=== PATIENT | female | born 1995 | race Caucasian/White ===

== ENCOUNTER 2018-11-27 15:00 | Outpatient (RCR) | payer BC, SELFPAY ==
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
--- NOTE | 2018-11-27 15:40 | HP.PTDCSUM ---
HP - PT D/C Summary It has been my pleasure to treat JUVENAL URIBE under orders from DONALD DUFFY, for the diagnosis of LUMBAGO WITH SCIATICA for a total of 10 visit(s). Discharge Date: Please see the following information for a summary of their discharge status. - Subjective Subjective: PATIENT REPORTS SHE IS FEELING PRETTY GOOD TODAY. PATIENT REPORTS THAT OVER-ALL SHE FEELS ABOUT THE SAME NOW SHE DID BEFORE SHE STARTED ANY PT. PATIENT REPORTS SHE IS SUPPOSED TO CALL HER DOCTOR TO MAKE A FOLLOW UP APPOINTMENT. PATIENT REPORTS TEMPORARY RELIEF WITH US WAS THE MOST RELIEF SHE HAS HAD WITH PT. PATIENT REPORTS SHE WAS ABLE TO STACK PALLETS TODAY AND DID OK BUT SITTING IN CLINIC TODAY INCREASES PAIN. - Pain RIGHT LOW BACK Pain Intensity (Out of 10): 4 RIGHT THIGH Pain Intensity (Out of 10): 0 - Objective Objective/Function: OVER-ALL PATIENT DOES NOT APPEAR TO BE IMPROVING WITH PHYSICAL THERAPY BUT SOME OF HER TESTING PROVOKES DIFFERENT C/O PAIN OR LACK THEREOF TODAY VS INITIAL EVAL. NO SIGNIFICANT CHANGE IN ROM OR STRENGTH IS SEEN TODAY VS INITIAL EVAL. RECOMMEND PHYSIAN RE-ASSESSMENT. Active Correction of posture: STILL INCREASES C/O LBP. Other Observations: INDEP GAIT INTO PT WITHOUT ANY ASSISTIVE DEVICES AND NO GROSS DEVIATION NOTED. INDEP TRANSFER SIT TO STAND WITHOUT UE ASSIST. Motor deficit: ROCKY LE'S 5/5 WITH MMT'IING BUT TESTING OF RIGHT HIP FLEX, ABD AND EXTERNAL ROTATION INCREASES LBP AND TESTING OF ROCKY HIP EXTENSION INCREASES LBP. Sensory deficit: NO. ROM deficit: TIGHT ROCKY HAMSTRINGS RIGHT > LEFT. Reflexes: ROCKY QUADS NORMAL. Dural Signs: NEGATIVE ROCKY LE'S. Lumbar mvmt loss: flex - NIL - PATIENT C/O INCREASED LBP IN FULL FLEXION. ext - MOD - DECEASES LOW BACK PAIN - NO EFFECT ON RIGHT LE. R SG - NIL - NE. L SG - NIL - INCREASED CENTRAL LBP. Core strength: POOR. Palpation: TENDER WITH PALPATION OF THE LOWER LUMBAR SPINE AND SACRUM WITH TENDERNESS STOPPING AT TAILBONE. INCRASED ROCKY PARASPINALS INTO LUMBAR AND THORACIC REGIONS L >R. PATIENT REPORTS TIGHTNESS OF BACK MUSCLES WITH PALPATION LEFT > RIGHT BUT NOT TENDER. OTHER: ROCKY DANICA TESTING STILL PROVOKES C/O INCREASED LBP - Goals Goal 1:: DECREASE C/O BACK AND RIGHT LE SX'S Goal Progress: Not Progressing Goal 2:: IMPROVE PERSONAL CARE, LIFTING, SITTING, STANDING SOCIAL LIFE, TRAVEL AND WORK FUNCTION Goal Progress: Not Progressing Goal 3:: INSTRUCT IN PROPHYLAXIS Goal Progress: Not Progressing - Plan Plan: D/C DUE TO LACK OF IMPROVEMENT. PATEINT IS AGREEABLE. PATIENT TO CALL PHYSICIAN FOR RE-ASSESSMENT. - D/C Information If there are questions or concerns regarding this patient's physical therapy, please feel free to call me at [phone]. Thank you for the referral of this patient. Sincerely, Vera Pace, PT, Cert MDT
== END 2018-11-27 19:00 | disposition home or self-care (01) ==
LOC: PT 15:00
PROVIDERS: Family Provider Pediatrics; PCP Pediatrics
DX: M54.40 Lumbago with sciatica, unspecified side (principal)
CPT/HCPCS: 97014; 97035; 97110; 97113; 97162; 97530; G0283

== ENCOUNTER 2021-12-05 10:51 | Outpatient (CLI) | payer MEDICAID, SELFPAY ==
--- NOTE | 2021-12-05 10:54 | US_ITS ---
STUDY: FIRST TRIMESTER OBSTETRICAL ULTRASOUND REASON FOR EXAM: Female, 26 years old viability and dating LMP: Unknown. TECHNIQUE: Transvaginal TECHNICAL QUALITY: Adequate. PRIOR ULTRASOUND: None. FINDINGS: There is visualization of a single gestational sac in a normal intrauterine position. The mean sac diameter (MSD) measures 2.21 cm, indicating an estimated gestational age (EGA) of 7 weeks, 1 days. The gestational sac shape is within normal limits. There is a visualized yolk sac. The yolk sac measures 4.5 mm. The placenta is non-visualized. There is visualization of a live embryo. The crown-rump length (CRL) measures 7.1 mm, indicating an estimated gestational age (EGA) of 6 weeks, 5 days. There is demonstrated cardiac activity with a heart rate of 126 bpm. The estimated gestation age (EGA) by US is 6 weeks, 5 days. The estimated date of delivery (ERNIE) by US is 07/25/2022. The uterus measures 9.6 cm x 6.4 cm x 4.4 cm. There is no demonstrated uterine fibroid. The cervix is closed. The right ovary measures 4 cm x 1.8 cm x 1.6 cm. There is no right ovarian cyst. There is no visualized right adnexal mass or complex lesion. The left ovary measures 3 cm x 2.2 cm x 1.6 cm. There is no left ovarian cyst. There is no visualized left adnexal mass or complex lesion. There is no fluid in the cul de sac. US/Transvaginal w/Preg US IMPRESSION: Single live intrauterine gestation with a mean gestational age of 6 weeks and 5 days. Electronically Signed: Bradley Galvan MD at 13:28 EST ,
== END 2021-12-05 23:59 | disposition short-term general hospital (02) ==
LOC: OPUS 10:53
PROVIDERS: PCP Pediatrics; Referring Provider Obstetrics & Gynecology; Visit Provider Obstetrics & Gynecology
DX: N91.2 Amenorrhea, unspecified (principal)
CPT/HCPCS: 76817

== ENCOUNTER 2021-12-18 13:22 | Outpatient (CLI) | payer MEDICAID, SELFPAY ==
[2021-12-18 14:23] LABS: Amphetamine Urine VISTA NEGATIVE (<1000 ng/mL); Barbiturate Urine VISTA NEGATIVE (< 200 ng/mL); Benzodiazepine Urine VISTA NEGATIVE (< 200 ng/mL); Cocaine Urine VISTA NEGATIVE (< 300 ng/mL); Ecstacy Urine VISTA NEGATIVE (< 500 ng/mL); Methadone Urine VISTA NEGATIVE (< 300 ng/mL); PCP Urine VISTA NEGATIVE (< 25 ng/mL); THC Urine VISTA POSITIVE (< 50 ng/mL); Vista UDS pH Range 6
[2021-12-21 05:08] LABS: Chlamydia By Nucleic Acid AMP Negative (Negative)
[2021-12-21 08:13] LABS: Gonococcus By Nucleic Acid AMP Negative (Negative)
[2021-12-24 13:42] LABS: HPV Reflexed? NOT INDICATED
== END 2021-12-18 23:59 | disposition home or self-care (01) ==
LOC: LAB 13:25
PROVIDERS: PCP Pediatrics; Referring Provider Obstetrics & Gynecology; Visit Provider Obstetrics & Gynecology
DX: Z34.80 Encounter for supervision of other normal pregnancy, unspecified trimester (principal)
CPT/HCPCS: 80307; 87086; 87088; 87491; 87591; 88175; G0145

== ENCOUNTER 2022-01-02 12:30 | Outpatient (CLI) | payer MEDICAID, SELFPAY ==
[2022-01-02 13:11] LABS: Absolute Lymphocyte Count 2.62 X10^3/uL (0.83-4.51); Absolute Neutrophil Count 7.3 X10^3/uL (2.0-7.7); Basophil# 0.03 X10^3/uL; Basophil% 0.3 % (0-1); Eosinophil# 0.02 X10^3/uL; Eosinophils% 0.2 % (0-5); Hematocrit 39.1 % (37-47); Hemoglobin 13.6 g/dL (12.0-15.0); Lymphocyte # 2.62 X10^3/ul (0.83-4.51); Lymphocyte % 24.5 % (19-41); Mean Corp Hgb Conc 34.8 g/dL (32-36); Mean Corpuscular Hgb 30.8 pg (27.0-32.0); Mean Corpuscular Volume 88.7 fL (81-99); Mean Platelet Vol. 9.9 fl (6.2-12.0); Monocyte# 0.72 X10^3/uL; Monocyte% 6.7 % (0-10); NRBC Flagged by Analyzer 0 % (0-5); Neutrophil # 7.28 X10^3/uL (2.7-7.7); Platelet Count 271 K/mm3 (150-450); RBC Distribution Width CV 11.8 % (11.6-14.6); RBC Distribution Width SD 38.3 fl (35.1-43.9); Red Blood Count 4.41 M/mm3 (4.2-5.4); White Blood Count 10.7 K/mm3 (4.4-11.0)
[2022-01-02 13:39] LABS: ALB/GLOB Ratio 1.1 RATIO (0.9-2.4); AST(SGOT) 11 U/L (15-37); Alanine Aminotransfer ALT/SGPT 16 U/L (13-56); Albumin, Serum 4.1 g/dL (3.2-5.0); Alkaline Phosphatase 49 U/L (45-117); Anion Gap 6 (5-15); BUN 5 mg/dL (7-18); BUN/Creat Ratio 8.1 RATIO (10-20); Chloride 102 mmol/L (98-107); Creatinine, Serum 0.62 mg/dL (0.55-1.02); EST Glomerular Filtration Rate 125 mL/min (>60); Est Glom Filt Rate - Afr Amer 151 mL/min (>60); Globulin 3.6 g/dL (2.2-4.2); Glucose 92 mg/dL (74-106); Potassium 3.1 mmol/L (3.5-5.1); Protein, Total 7.7 g/dL (6.4-8.2); Sodium Level 136 mmol/L (136-145)
[2022-01-02 13:47] LABS: NATERA MAILED SPECIMEN
[2022-01-02 14:37] LABS: HIV - WCH Non-Reactive (Nonreactive); Hepatitis B Surface Antigen Non-Reactive (Nonreactive); Hepatitis C Antibody Non-Reactive (Nonreactive); Rubella IgG Reactive (Nonreactive); Syphilis Antibodies Non-reactive
[2022-01-03 18:41] LABS: V-Zoster IgG (Immunity) 1038 index (Immune >165)
== END 2022-01-02 23:59 | disposition home or self-care (01) ==
LOC: LAB 12:33
PROVIDERS: PCP Pediatrics; Visit Provider Obstetrics & Gynecology
DX: Z34.80 Encounter for supervision of other normal pregnancy, unspecified trimester (principal); Z78.9 Other specified health status
CPT/HCPCS: 36415; 80053; 85025; 86703; 86762; 86780; 86787; 86803; 86850; 86900; 86901; 87086; 87088; 87340

== ENCOUNTER 2022-01-18 11:42 | Outpatient (CLI) | payer MEDICAID, SELFPAY ==
[2022-01-18 12:46] LABS: NATERA MAILED SPECIMEN
== END 2022-01-18 23:59 | disposition home or self-care (01) ==
LOC: LABSPEC 11:45
PROVIDERS: PCP Family Medicine Sports Medicine; Referring Provider Obstetrics & Gynecology; Visit Provider Obstetrics & Gynecology
DX: Z34.81 Encounter for supervision of other normal pregnancy, first trimester (principal)
CPT/HCPCS: 36415

== ENCOUNTER → 2022-05-01 | Outpatient (CLI) | payer MEDICAID, SELFPAY ==
[2022-05-01 14:08] LABS: Absolute Lymphocyte Count 1.68 X10^3/uL (0.83-4.51); Absolute Neutrophil Count 9.1 X10^3/uL (2.0-7.7); Basophil# 0.02 X10^3/uL; Basophil% 0.2 % (0-1); Eosinophil# 0.07 X10^3/uL; Eosinophils% 0.6 % (0-5); Hematocrit 35.3 % (37-47); Hemoglobin 11.9 g/dL (12.0-15.0); Lymphocyte # 1.68 X10^3/ul (0.83-4.51); Lymphocyte % 14.4 % (19-41); Mean Corp Hgb Conc 33.7 g/dL (32-36); Mean Corpuscular Hgb 31.6 pg (27.0-32.0); Mean Corpuscular Volume 93.9 fL (81-99); Mean Platelet Vol. 9.3 fl (6.2-12.0); Monocyte# 0.66 X10^3/uL; Monocyte% 5.7 % (0-10); NRBC Flagged by Analyzer 0 % (0-5); Neutrophil # 9.14 X10^3/uL (2.7-7.7); Neutrophil % 78.5 % (47-70); Platelet Count 249 K/mm3 (150-450); RBC Distribution Width CV 12.3 % (11.6-14.6); RBC Distribution Width SD 42.1 fl (35.1-43.9); Red Blood Count 3.76 M/mm3 (4.2-5.4); White Blood Count 11.6 K/mm3 (4.4-11.0)
[2022-05-01 14:20] LABS: Glucose Challenge Gest 1H 50g 121 mg/dL (70-140)
== END | disposition home or self-care (01) ==
LOC: PAVLAB 13:39
PROVIDERS: PCP Family Medicine Sports Medicine; Referring Provider Obstetrics & Gynecology; Visit Provider Obstetrics & Gynecology
DX: Z34.80 Encounter for supervision of other normal pregnancy, unspecified trimester (principal)
CPT/HCPCS: 36415; 82950; 85025

== ENCOUNTER → 2022-06-28 | Outpatient (CLI) | payer MEDICAID, SELFPAY | END | disposition home or self-care (01) | LOC: LABSPEC 13:55 | PROVIDERS: PCP Family Medicine Sports Medicine; Referring Provider Obstetrics & Gynecology; Visit Provider Obstetrics & Gynecology | DX: Z34.90 Encounter for supervision of normal pregnancy, unspecified, unspecified trimester (principal) | CPT/HCPCS: 87081 ==

== ENCOUNTER 2022-07-04 17:35 | Inpatient (IN) | payer MEDICAID, SELFPAY ==
[2022-07-04] VITALS (59 sets, daily range): BP systolic 93–147; BP diastolic 51–90; PULSE 69–193; TEMP 36.1–36.8; O2SAT 93–100; BMI 31.2
--- NOTE | 2022-07-04 14:31 | US_ITS ---
STUDY: OBSTETRICAL ULTRASOUND - BIOPHYSICAL PROFILE REASON FOR EXAM: Female, 26 years old. Non-reassuring FHR- well being PRIOR ULTRASOUND: 2.12.25. TECHNIQUE: Transabdominal TECHNICAL QUALITY: Adequate. FINDINGS: There is a single intrauterine fetus. The fetus is in a cephalic presentation. There is demonstrated cardiac activity with a heart rate of 143 bpm. There is a normal amniotic fluid volume. The largest amniotic fluid pocket measures 4.9 cm. The amniotic fluid index (ERNESTO) is 11.8 cm. The placenta is anterior in location and is not low lying. There are Grade 3 placental changes. Age by LMP: 37 weeks, 0 days. ERNIE by LMP: 9.. BIOPHYSICAL PROFILE: Breathing Movements (FBM): 0 Gross Body Movements (GBM): 0 Tone (FT): 2 Amniotic Fluid Volume (AFV): 2 TOTAL SCORE: 4 / 8 US/Biophysical Prof W/O Non Stres IMPRESSION: biophysical profile of 4/8. There is a single live intrauterine with a heart rate of 143 bpm. Electronically Signed: Riki Gould MD at 17:21 EDT ,
[2022-07-04] MEDS: Lactated Ringers 1,000 ML 50 ML IV (18:10)
[2022-07-04 18:25] LABS: Absolute Lymphocyte Count 2.04 X10^3/uL (0.83-4.51); Absolute Neutrophil Count 10.7 X10^3/uL (2.0-7.7); Basophil# 0.02 X10^3/uL; Basophil% 0.1 % (0-1); Eosinophil# 0.04 X10^3/uL; Eosinophils% 0.3 % (0-5); Hematocrit 37.3 % (37-47); Hemoglobin 12.6 g/dL (12.0-15.0); Lymphocyte # 2.04 X10^3/ul (0.83-4.51); Mean Corp Hgb Conc 33.8 g/dL (32-36); Mean Corpuscular Volume 91.9 fL (81-99); Mean Platelet Vol. 9.6 fl (6.2-12.0); Monocyte# 0.73 X10^3/uL; Monocyte% 5.4 % (0-10); NRBC Flagged by Analyzer 0 % (0-5); Neutrophil # 10.68 X10^3/uL (2.7-7.7); Neutrophil % 78.7 % (47-70); Platelet Count 264 K/mm3 (150-450); RBC Distribution Width SD 43.2 fl (35.1-43.9); Red Blood Count 4.06 M/mm3 (4.2-5.4); White Blood Count 13.6 K/mm3 (4.4-11.0)
[2022-07-04] MEDS: LACTATED RINGERS 500 ML 999 ML IV ×2 (19:06→20:38)
[2022-07-04] MEDS: fentaNYL-bupivacaine (epidural) 100 ML BAG EPIDURAL (19:56)
[2022-07-04 19:59] LABS: Amphetamine Urine VISTA NEGATIVE (<1000 ng/mL); Barbiturate Urine VISTA NEGATIVE (< 200 ng/mL); Benzodiazepine Urine VISTA NEGATIVE (< 200 ng/mL); Cocaine Urine VISTA NEGATIVE (< 300 ng/mL); Ecstacy Urine VISTA NEGATIVE (< 500 ng/mL); Methadone Urine VISTA NEGATIVE (< 300 ng/mL); PCP Urine VISTA NEGATIVE (< 25 ng/mL); THC Urine VISTA POSITIVE (< 50 ng/mL); Vista UDS pH Range 8
[2022-07-04] MEDS: Ondansetron 4 MG/2 ML Vial IV (20:44)
[2022-07-04] MEDS: Oxytocin 30 units/NS 500 ml 30 UNITS/500 ML IV.SOLN IV (21:15)
--- NOTE | 2022-07-04 21:41 | HP.PCM.OB_ITS ---
HPI - General General Date of Admission: 07/04/22 HPI Narrative JUVENAL URIBE, is a 26 F who presents with heart rate variable and 6/10 bpp for IOL. Maternal Data Information ERNIE Calculator Estimated Delivery Date Method Current WG Current Estimate 07/25/22 Ultrasound #1 37w 0d Other Estimates 07/26/22 Ultrasound #2 36w 6d PFSH PFSH Medical History Anxiety Depression History of asthma Marijuana use Home Medications vitamin no.102-iron 90 mg-folate 1 mg-dha 200 mg capsule 1 cap PO DAILY 01/18/22 [History Last Taken Unknown] Allergy/AdvReac Type Severity Reaction Status Date / Time No Known Allergies Allergy Verified 07/04/22 13:56 Surgical History History of tonsillectomy History of wisdom tooth extraction Social History adopted: No household members: children and other details: Grandpa number of children: 1 current occupational status: unemployed pets and animals: Yes pets and animals: cat(s) and dog(s) Smoking Status: Former smoker alcohol intake: never substance use type: does not use caffeine: Yes (reduce with ) Type: carbonated beverages do you feel safe at home: Yes additional social history: JERAMY Solomon History 2 Elective abortions Hx Para 1 Spontaneous abortions Hx # Term Pregnancies Ectopic pregnancies Hx # Pregnancies Multiple births # of living children 1 Past Pregnancies Del. Date Name GA/Weeks Outcome Route Bth Weight Infant Gen Labor Lgth Anesthesia Del Locatn Provider FOB 10/19/13 Ender 38 live - full term vacuum 7# 11oz Male 6 hr ep idural [facility] Seals not involved Delivery Date: 10/19/13 Last Updated by: Hailey Cunha RFID TECHNICIAN, RFID TECHNICIAN-C SROM. Visit Details Expected Delivery Route/Plan Labor Preferences- CB/BF classes: [] labor support person: [] labor intervention preferences: [] pain management options preferred: [] cut cord/dad catch: [] : [] PP control planned: [] discussed possible routes of delivery and associated risks: [] special requests: [] Plans Covid status: [] Flu vaccine: [] Tdap vaccine: [] Rhogam: [] LARC form signed: [] Problem list reviewed and updated with the most current plan of care details and appropriate orders placed. Relevant counseling for the gestational age provided. Continue routine care and follow up unless otherwise noted in visit n otes/problem list details OB Flowsheet Initial Weight: Not Recorded Date -?-?-?-?-?-?-?-?-?-?--?-?- EGA Weight BP Urine Prot -?-?-?-?-?-?-?-?-?-?-?-?- Glucose FHR FuHt Pres Dilation -?-?-?-?-?-?-?-?-?-?-?-?- Effaced St Visit Note 12/18/21 -?-?-?-?-?-?-?-?-?-?-?-?- 8w 5d 138 lb 6 oz 110/70 -?-?-?-?-?-?-?-?-?-?-?-?- 163 -?-?-?-?-?-?-?-?-?-?-?-?- JV- CRL consiste nt with earlier ultrasound. pt has nausea - reglan and pepcid ordered 01/02/22 -?-?-?-?-?-?-?-?-?-?-?-?- 10w 6d 130 lb 6 oz 118/86 Nega tive -?-?-?-?-?-?-?-?-?-?-?-?- Negative 160 -?-?-?-?-?-?-?-?-?-?-?-?- JV- nausea somew hat improved. needs to leave urine sample as was treated in [facility] for n/v and was told has uti. She has been vomiting the abx. try phenergan. 01/18/22 -?-?-?-?-?-?-?-?-?-?-?-?- 13w 1d 134 lb 106/70 Negative -?-?-?-?-?-?-?-?-?-?-?-?- Negative 150 -?-?-?-?-?-?-?-?-?-?-?-?- SM- no vb lof cr amping 02/20/22 -?-?-?-?-?-?-?-?-?-?-?-?- 17w 6d 138 lb 4 oz 110/62 Trac e -?-?-?-?-?-?-?-?-?-?-?-?- Negative 148 -?-?-?-?-?-?-?-?-?-?-?-?- MH-No Vb, LOF. F eels some flutters. Tearful, lost grandpa last week. She lived with him. Wants to restart med for depression. Rx zoloft. Enc counseling. Now living w her dad and going ok. BF is supportive. Nausea returned. Rx zofran. States Neha not having genetic testing done due to his insurance won't cover. Will check into this. 03/20/22 -?-?-?-?-?-?-?-?-?-?-?-?- 21w 6d 142 lb 2 oz 110/70 Nega tive -?-?-?-?-?-?-?-?-?-?-?-?- Negative 154 -?-?-?-?-?-?-?-?-?-?-?-?- JV- no lof, vagi nal bleeding, or dec fm. small echogic focus. pt doing overall well emotionally this week. 04/17/22 -?-?-?-?-?-?-?-?-?-?-?-?- 25w 6d 150 lb 2 oz 128/70 Nega tive -?-?-?-?-?-?-?-?-?-?-?-?- Negative 150 -?-?--?-?-?-?-?-?-?-?-?-?- JV- gct ordered. no complaints. 05/01/22 -?-?-?-?-?-?-?-?-?-?-?-?- 27w 6d 153 lb 4 oz Negative -?-?-?-?-?-?-?-?-?-?-?-?- Negative 145 28 -?-?-?-?-?-?-?-?-?-?-?-?- JV- normal gct a nd cbc, no complaints other than small 3 cm rash on abdomen that itches. she had a spot on her arm that she applied bleach to and that is irritated and red. Recommend hydrocortisone cream to abdomen and keep wound on arm coverd and clean. 05/23/22 -?-?-?-?-?-?-?-?-?-?-?-?- 31w 0d 160 lb 4 oz 100/60 Nega tive -?-?-?-?-?-?-?-?-?-?-?-?- Negative 150 31 -?-?-?-?-?-?-?-?-?-?-?-?- JV- no lof, vagi nal bleeding, or dec fm. we talked a lot about post depression. 06/06/22 -?-?-?-?-?-?-?-?-?-?-?-?- 33w 0d 158 lb 116/74 Negative -?-?-?-?-?-?-?-?-?-?-?-?- Negative 156 34 -?-?-?-?-?-?-?-?-?-?-?-?- JV- no lof, vagi nal bleeding, or dec fm. pt wondering if could get a sneak peak of baby's face before delviery. we talked about a quick scan in the ultrasound room at 36 weeks to check for vtx presentation. 06/21/22 -?-?-?-?-?-?-?-?-?-?-?-?- 35w 1d 160 lb 4 oz 118/62 Nega tive -?-?-?-?-?-?-?-?-?-?-?-?- Negative 150 36 Cephalic -?-?-?-?-?-?-?-?-?-?-?-?- SM- no vb lof go od fm no regular ctx 06/28/22 -?-?-?-?-?-?-?-?-?-?-?-?- 36w 1d 162 lb 102/58 Negative -?-?-?-?-?-?-?-?-?-?-?-?- Negative 140 37 Cephalic 1 -?-?-?-?-?-?-?-?-?-?-?-?- SM- no vb lof go od fm no regulr ctx gbs today 07/04/22 -?-?-?-?-?--?-?-?-?-?-?-?- 37w 0d 165 lb 8 oz 112/77 Nega tive -?-?-?-?-?-?-?-?-?-?-?-?- Negative 185 37 Cephalic 3 -?-?-?-?-?-?-?-?-?-?-?-?- 70 -2 JV- heart rate in 180's for over 2 minutes then dropped to 60's, back up to 170's. pt was put on NSt and showed hear trate 150 with drop to 90, then back up to 150 and back down to 101. sending to L&D stat via wheelchair. 07/04/22 -?-?-?-?-?-?-?-?-?-?-?-?- 37w 0d 165 lb 8 oz 128/74 121/78 134/85 135/74 137/81 147/90 118/64 119/59 117/57 109/56 114/58 145/81 -?-?-?-?-?-?-?-?-?-?-?-?- -?-?-?-?-?-?-?-?-?-?-?-?- NST FHR Rate Baby A Baseline: 130 Variability:: Moderate Accelerations:: 15 x 15 Decelerations:: None NST Reactive:: Yes FHR Category:: Category I Uterine Activity:: irregular ROS Constitutional Constitutional: Reports systems reviewed and no addt'l complaints, except as documented Eyes Eyes: Denies change in vision ENT HEENT: Reports systems reviewed and no addt'l complaints, except as documented; Denies headache(s) Cardiovascular Cardiovascular: Reports systems reviewed and no addt'l complaints, except as documented; Denies chest pain or dyspnea Respiratory/Chest Respiratory/Chest: Reports systems reviewed and no addt'l complaints, except as documented Gastrointestinal Gastrointestinal: Reports systems reviewed and no addt'l complaints, except as documented; Denies abdominal pain Genitourinary Genitourinary: Reports systems reviewed and no addt'l complaints, except as documented, contractions Details: present (irregular) and movement Details: present; Denies dysuria or genital lesions Musculoskeletal Musculoskeletal: Reports systems reviewed and no addt'l complaints, except as documented Neurologic Neurologic: Reports systems reviewed and no addt'l complaints, except as documented Endocrine Endocrinology: Reports systems reviewed and no addt'l complaints, except as documented Vital Signs Vital Signs Vital Signs: 07/04/22 14:28 07/04/22 14:28 07/04/22 14:31 Temperature Temperature Source Pulse Rate 69 75 Blood Pressure 128/74 H BP Systolic 128 BP Diastolic 74 Pulse Ox 07/04/22 14:31 07/04/22 14:36 07/04/22 14:36 Temperature Temperature Source Pulse Rate 79 Blood Pressure BP Systolic BP Diastolic Pulse Ox 98 98 07/04/22 14:33 07/04/22 14:33 07/04/22 14:33 Temperature Temperature Source Temporal Pulse Rate 81 Blood Pressure BP Systolic BP Diastolic Pulse Ox 98 07/04/22 14:33 07/04/22 14:41 07/04/22 14:41 Temperature 96.9 F L Temperature Source Pulse Rate 80 Blood Pressure BP Systolic BP Diastolic Pulse Ox 98 07/04/22 14:46 07/04/22 14:46 07/04/22 14:51 Temperature Temperature Source Pulse Rate 85 74 Blood Pressure BP Systolic BP Diastolic Pulse Ox 97 07/04/22 14:51 07/04/22 14:56 07/04/22 14:56 Temperature Temperature Source Pulse Rate 84 Blood Pressure BP Systolic BP Diastolic Pulse Ox 98 98 07/04/22 15:01 07/04/22 15:01 07/04/22 15:06 Temperature Temperature Source Pulse Rate 73 73 Blood Pressure BP Systolic BP Diastolic Pulse Ox 98 07/04/22 15:06 07/04/22 15:11 07/04/22 15:11 Temperature Temperature Source Pulse Rate 84 Blood Pressure BP Systolic BP Diastolic Pulse Ox 98 97 07/04/22 15:16 07/04/22 15:16 07/04/22 15:21 Temperature Temperature Source Pulse Rate 75 73 Blood Pressure BP Systolic BP Diastolic Pulse Ox 98 07/04/22 15:21 07/04/22 15:26 07/04/22 15:26 Temperature Temperature Source Pulse Rate 72 Blood Pressure BP Systolic BP Diastolic Pulse Ox 98 97 07/04/22 15:31 07/04/22 15:31 07/04/22 15:35 Temperature Temperature Source Pulse Rate 74 72 Blood Pressure BP Systolic BP Diastolic Pulse Ox 97 07/04/22 15:35 07/04/22 15:41 07/04/22 15:41 Temperature Temperature Source Pulse Rate 82 Blood Pressure BP Systolic BP Diastolic Pulse Ox 98 97 07/04/22 15:45 07/04/22 15:45 07/04/22 16:04 Temperature Temperature Source Pulse Rate 81 69 Blood Pressure BP Systolic BP Diastolic Pulse Ox 97 07/04/22 16:04 07/04/22 16:08 07/04/22 16:08 Temperature Temperature Source Pulse Rate 76 Blood Pressure BP Systolic BP Diastolic Pulse Ox 97 97 07/04/22 16:13 07/04/22 16:13 07/04/22 17:45 Temperature Temperature Source Pulse Rate 76 71 Blood Pressure BP Systolic BP Diastolic Pulse Ox 97 07/04/22 17:45 07/04/22 17:50 07/04/22 17:50 Temperature Temperature Source Pulse Rate 92 Blood Pressure BP Systolic BP Diastolic Pulse Ox 98 99 07/04/22 17:55 07/04/22 17:55 07/04/22 18:00 Temperature Temperature Source Pulse Rate 76 86 Blood Pressure BP Systolic BP Diastolic Pulse Ox 98 07/04/22 18:00 07/04/22 18:05 07/04/22 18:05 Temperature Temperature Source Pulse Rate 75 Blood Pressure BP Systolic BP Diastolic Pulse Ox 98 99 07/04/22 18:10 07/04/22 18:10 07/04/22 18:15 Temperature Temperature Source Pulse Rate 88 75 Blood Pressure BP Systolic BP Diastolic Pulse Ox 98 07/04/22 18:15 07/04/22 18:20 07/04/22 18:20 Temperature Temperature Source Pulse Rate 80 Blood Pressure 121/78 H BP Systolic 121 BP Diastolic 78 Pulse Ox 99 07/04/22 18:20 07/04/22 18:22 07/04/22 18:22 Temperature Temperature Source Temporal Pulse Rate Blood Pressure BP Systolic BP Diastolic Pulse Ox 99 98 07/04/22 18:22 07/04/22 19:19 07/04/22 19:21 Temperature 97.7 F L Temperature Source Temporal Pulse Rate Blood Pressure 134/85 H BP Systolic 134 BP Diastolic 85 Pulse Ox 07/04/22 19:21 07/04/22 19:19 07/04/22 19:40 Temperature 98.3 F Temperature Source Pulse Rate 83 84 Blood Pressure BP Systolic BP Diastolic Pulse Ox 07/04/22 19:40 07/04/22 19:45 07/04/22 19:45 Temperature Temperature Source Pulse Rate 91 Blood Pressure BP Systolic BP Diastolic Pulse Ox 99 99 07/04/22 19:47 07/04/22 19:47 07/04/22 19:50 Temperature Temperature Source Pulse Rate 83 108 H Blood Pressure 135/74 H BP Systolic 135 BP Diastolic 74 Pulse Ox 07/04/22 19:50 07/04/22 19:52 07/04/22 19:52 Temperature Temperature Source Pulse Rate 100 Blood Pressure 137/81 H BP Systolic 137 BP Diastolic 81 Pulse Ox 99 07/04/22 19:56 07/04/22 19:56 07/04/22 19:55 Temperature Temperature Source Pulse Rate 95 Blood Pressure 147/90 H BP Systolic 147 BP Diastolic 90 Pulse Ox 99 07/04/22 20:00 07/04/22 20:00 07/04/22 20:01 Temperature Temperature Source Pulse Rate 82 Blood Pressure 118/64 BP Systolic 118 BP Diastolic 64 Pulse Ox 99 07/04/22 20:01 07/04/22 20:05 07/04/22 20:05 Temperature Temperature Source Pulse Rate 90 82 Blood Pressure BP Systolic BP Diastolic Pulse Ox 99 07/04/22 20:11 07/04/22 20:11 07/04/22 20:10 Temperature Temperature Source Pulse Rate 81 Blood Pressure 119/59 L BP Systolic 119 BP Diastolic 59 Pulse Ox 98 07/04/22 20:16 07/04/22 20:16 07/04/22 20:15 Temperature Temperature Source Pulse Rate 77 Blood Pressure 117/57 L BP Systolic 117 BP Diastolic 57 Pulse Ox 99 07/04/22 20:20 07/04/22 20:20 07/04/22 20:21 Temperature Temperature Source Pulse Rate 79 Blood Pressure 109/56 L BP Systolic 109 BP Diastolic 56 Pulse Ox 100 07/04/22 20:21 07/04/22 20:26 07/04/22 20:26 Temperature Temperature Source Pulse Rate 72 74 Blood Pressure 114/58 L BP Systolic 114 BP Diastolic 58 Pulse Ox 07/04/22 20:25 07/04/22 20:30 07/04/22 20:30 Temperature Temperature Source Pulse Rate 75 Blood Pressure BP Systolic BP Diastolic Pulse Ox 100 100 07/04/22 20:32 07/04/22 20:32 07/04/22 21:17 Temperature Temperature Source Pulse Rate 74 Blood Pressure 145/81 H BP Systolic 145 BP Diastolic 81 Pulse Ox 93 07/04/22 21:17 07/04/22 21:18 07/04/22 21:18 Temperature Temperature Source Pulse Rate 193 H 84 Blood Pressure BP Systolic BP Diastolic Pulse Ox 100 07/04/22 21:17 07/04/22 21:17 Temperature 97.6 F L Temperature Source Temporal Pulse Rate Blood Pressure BP Systolic BP Diastolic Pulse Ox Weight Weight: 165 lb 8 oz Body Mass Index (BMI) 31.2 Physical Exam Const alert, oriented x3, no apparent distress and healthy appearing HEENT normocephalic and moist oral mucous membranes Head and Scalp: atraumatic Neck full ROM, no lymphadenopathy, supple and thyroid normal General: trachea midline Lymph Lymphatic: no lymphadenopathy noted Chest inspection of chest normal Resp normal respiratory effort Cardio regular rate GI normal to inspection, nondistended, normoactive bowel sounds, soft to palpation and non-tender Inspection: gravid external exam normal Manual OB Exam: estimated gestational size appropriate, presentation cephalic, dilated, effaced and station Extremity normal to inspection General Extremity: Negative for edema Skin no rashes or lesions noted Neuro no focal motor deficits and deep tendon reflexes 2+ bilaterally Motor Exam: strength 5/5 throughout and clonus absent Psych mental status grossly normal Labs Labs Labs: Blood Type B POSITIVE Antibody Screen NEGATIVE Hct 37.3 % (37-47) Hgb 12.6 g/dL (12.0-15.0) Obstetrics US Syphilis Total Ab Non-reactive VZV IgG Antibody 1038 index (Immune >165) Rubella IgG Antibody Reactive (Nonreactive) Hep Bs Antigen Non-Reactive (Nonreactive) Chlamydia DNA (DONALD) Negative (Negative) Neisseria gonorrhoeae DNA (DONALD) Negative (Negative) HIV 1&2 Antibody Non-Reactive (Nonreactive) Glucose 1 Hr 50 gm 121 mg/dL (70-140) Group B Strep DNA Negative (Negative) Rhogam given: No Assessment & Plan (1) Depression with anxiety: COMMENT: Stopped trintellix 11/29/21. 02/20 start zoloft (2) : QUALIFIERS: Weeks of gestation: 37 weeks Qualified Code(s): Z3A.37 - 37 weeks gestation of COMMENT: GBS Negative, NIPT low risk, carrier neg. 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 FOB should be tested/declined as his insurance won't cover. if pos, genetic counseling recommended. (5) Marijuana use: COMMENT: random tox; 02/20 loss of grandpa, admit use, very upset (6) Abnormal ultrasonic finding on screening of mother: COMMENT: 04/12 bpp recommend IOL now PLAN: Plan Patient presents IOL, plan management for with pitocin/AROM- mec fluid Pain management: plans epidural. GBS negative. Management of any complications: abnormal testing I have reviewed the [facility] and made any clinically relevant updates.
[2022-07-04] MEDS: Oxytocin 30 units/NS 500 ml 30 UNITS/500 ML IV.SOLN 334 UNITS IV (23:07)
--- NOTE | 2022-07-04 23:39 | OP.PCM_ITS ---
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 FOB should be tested/declined as his insurance won't cover. if pos, genetic counseling recommended. (3) Supervision of other normal : COMMENT: PRR ERNIE:07/25/22 girl Lia PC: Ender. BF:Neha (4) : QUALIFIERS: Weeks of gestation: 37 weeks Qualified Code(s): Z3A.37 - 37 weeks gestation of COMMENT: GBS Negative, NIPT low risk, carrier neg. 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 02/20 start zoloft (6) Abnormal ultrasonic finding on screening of mother: COMMENT: 04/12 bpp recommend IOL now (7) Vaginal delivery: COMMENT: SM IOL 04/12 bpp mec 37 girl Lia Maternal Data Information ERNIE Calculator Estimated Delivery Date Method Current WG Current Estimate 07/25/22 Ultrasound #1 37w 0d Other Estimates 07/26/22 Ultrasound #2 36w 6d Vaginal Delivery Operative Information Date of Procedure: 07/04/22 Pre-Operative Diagnosis: IOL Post-Operative Diagnosis: same Surgery / Procedure Performed: Spontaneous Vaginal Delivery Type of Anesthesia: Epidural Special Medications: none Estimated Blood Loss: 200 Fluids Replaced: crystalloid Findings Description of Procedure: Patient began pushing and delivered the head in the AVELINA presentation. The head was delivered atraumatically. The anterior and posterior shoulders delivered without complication followed by the rest of the infant and the infant was placed on the maternal abdomen. Delayed cord clamping was employed for approximately 60 seconds. Cord was clamped and cut and gentle traction was applied to the cord and the placenta delivered spontaneously immediately following it was noted to be intact with three-vessel cord. The perineum and vagina were inspected and noted to have a first degree laceration repaired in the usual fashion. EBL was 200. Patient and infant tolerated delivery well. Presentation: AVELINA Amniotic Membrane Rupture Type: Artificial Amniotic Fluid Description: Thick meconium Placental Delivery Description: Spontaneous Placenta Disposition: [facility] Cord Vessel Description: 3 Vessels Cord Entanglement: None Infant A Gender: Female Delayed Cord Clamping: Yes Post Vaginal Delivery Medications Given After Delivery: IV Pitocin Episiotomy Description: None Laceration: Perineal Extension/lac and 1st degree Complication Complications: None Procedures Urinary/Genital [id number]: [id number] Vaginal Delivery+ Care([facility])
--- NOTE | 2022-07-04 23:41 | DCINST_ITS ---
Discharge Instructions Diet Discharge Diet: No restrictions Activity Discharge Activity: Return to Normal Activity, May Drive, May Shower and May Take a Tub Bath (in 4 weeks) May resume sexual activity in: 6-8 weeks (after seen by OB provider) Weight Bearing Status: Full weight bearing Lifting Restrictions: none Dressing / Incision Call your doctor if you observe: Fever of 101 or Higher, Inability to urinate, Using more than 1 pad per hour (for more than 2 hours in a row or more), Shortness of breath, Dizziness, Chest pain and - (headache not controlled with tylenol, change in vision) Follow Up Care When: in 6 weeks for visit, call the office to make the appointment. If you had elevated blood pressures call the office to be seen within 1 week. Test Results: Test results from this visit will be discussed in further detail at your follow- up appointment, if applicable. Discharge Plan Admission Admit Date/Time: 07/04/22 17:35 Attending Provider: Marina Hernandez Primary Care Provider: Layla Dougherty Discharge Orders/Prescriptions Prescriptions: No Action PNV [id number] 90 mg iron- 1 mg-200 mg capsule 1 cap PO DAILY Referrals / Follow Up: Layla Dougherty MD [Primary Care Provider] - Disposition Disposition (needs filled in before D/C Order can be placed): Home, Self Care
[2022-07-05] VITALS (11 sets, daily range): BP systolic 104–122; BP diastolic 58–72; PULSE 66–85; RESP 14–16; TEMP 36.1–36.6; O2SAT 97
[2022-07-05] MEDS: Naproxen 500 MG Tablet PO (05:52)
--- NOTE | 2022-07-05 08:48 | PCM.PN.OB ---
Subjective Subjective Patient doing well without complaints. Tolerating PO. Ambulating and voiding without difficulty. feeding well. Denies chest pain, shortness of breath, calf pain/swelling, fevers, chills, lightheadedness. Objective Data Objective Data Vital Signs: Vital Signs Temp Pulse Resp BP Pulse Ox O2 Del Method 97.7 F L 74 16 122/60 H 97 Room Air 07/05/22 03:06 07/05/22 03:06 07/05/22 03:06 07/05/22 03:06 07/05/22 01:21 07/05/22 03:06 Oxygen Delivery Method Room Air Weight: 165 lb 8 oz Body Mass Index (BMI) 31.2 Intake & Output: Intake and Output for Last 24 Hours 07/03/22 07/04/22 07/05/22 23:59 23:59 23:59 Intake Total 1730.80 / 1730.80 333 / 333 Output Total 100 / 100 800 / 800 Balance 1630.80 / 1630.80 -467 / -467 Lab / Micro Data Result Diagrams: 07/04/22 18:10 Labs: Laboratory Results - last 24 hr 07/04/22 18:10: WBC 13.6 H, RBC 4.06 L, Hgb 12.6, Hct 37.3, MCV 91.9, MCH 31.0, MCHC 33.8, RDW Std Deviation 43.2, RDW Coeff of Adriano 13.0, Plt Count 264, MPV 9.6, Immature Gran % (Auto) 0.500, Neut % (Auto) 78.7 H, Lymph % (Auto) 15.0 L, [place] % (Auto) 5.4, Eos % (Auto) 0.3, Baso % (Auto) 0.1, Absolute Neuts (auto) 10.7 H, Absolute Lymphs (auto) 2.04, Nucleated RBC % 0 07/04/22 18:10: Blood Type B POSITIVE, Antibody Screen NEGATIVE 07/04/22 19:30: Urine Opiates Screen NEGATIVE, Urine Methadone Screen NEGATIVE, Ur Barbiturates Screen NEGATIVE, Ur Phencyclidine Scrn NEGATIVE, Ur Amphetamines Screen NEGATIVE, MDMA (Ecstasy) Screen NEGATIVE, U Benzodiazepines Scrn NEGATIVE, Urine Cocaine Screen NEGATIVE, U Cannabinoids Screen POSITIVE H, Ur Drug Screen Comment Micro: Microbiology 07/04/22 18:10 Nasal Secretion SARS-CoV-2 Antigen (Rapid) - Final Radiography Diagnostic Testing: Radiology Impression Biophysical Profile Ultrasound 07/04/22 14:31 IMPRESSION: biophysical profile of 02/08. There is a single live intrauterine with a heart rate of 143 bpm. Electronically Signed: Riki Gould MD at 17:21 EDT , ROS Constitutional Constitutional: Reports systems reviewed and no addt'l complaints, except as documented Cardiovascular Cardiovascular: Reports systems reviewed and no addt'l complaints, except as documented Respiratory/Chest Respiratory/Chest: Reports systems reviewed and no addt'l complaints, except as documented Gastrointestinal Gastrointestinal: Reports systems reviewed and no addt'l complaints, except as documented Physical Exam Const alert, oriented x3 and no apparent distress HEENT Head and Scalp: atraumatic Resp normal respiratory effort GI soft to palpation and non-tender Bimanual Exam - Vag & Uterus: uterus non-tender Uterus Palpation: uterus fundus firm (below Umbilicus) Assessment & Plan (1) Vaginal delivery: COMMENT: SM IOL 610 bpp mec 37 girl Lia (2) Depression with anxiety: COMMENT: Stopped trintellix 11/29/21. 02/20 start zoloft (3) Marijuana use: COMMENT: random tox; 02/20 loss of grandpa, admit use, very upset PLAN: Plan s/p PPD # 1 1. routine post delivery care 2. breast feeding- support given 3. rh positive 4. rubella immune
--- NOTE | 2022-07-05 09:04 | NURSING ---
Pt threw up early today, states she cant keep any food down and threw up the Alieve she took earlier. States she has pain but does not need any oral pain medications at the moment until she is able to eat something and keep it down.
[2022-07-05] MEDS: 0.9% Saline Lock 10 ML Syringe IV (09:28)
[2022-07-05] MEDS: Ondansetron 4 MG/2 ML Vial IV (09:28)
--- NOTE | 2022-07-05 12:58 | NURSING ---
void x1 at 1145 for 200ml
--- NOTE | 2022-07-05 13:39 | NURSING ---
Void x2, pt missed hat and I was not able to measure urine. Pt says she feels like she was able to empty her bladder.
--- NOTE | 2022-07-05 18:09 | NURSING ---
Reviewed and agreed with Joana RN charting.
[2022-07-06] VITALS: BP 103/54; PULSE 66; RESP 16; TEMP 35.9
[2022-07-06 04:00] VITALS: BP 122/72; PULSE 67; RESP 16; TEMP 36
[2022-07-06 08:23] VITALS: BP 128/82; PULSE 66; RESP 16; TEMP 36.6
--- NOTE | 2022-07-06 10:22 | PCM.PN.OB ---
Subjective Subjective Patient doing well without complaints. Tolerating PO. Ambulating and voiding without difficulty. Feeding well. Denies chest pain, shortness of breath, calf pain/swelling, fevers, chills, lightheadedness. Objective Data Objective Data Vital Signs: Vital Signs Temp Pulse Resp BP Pulse Ox O2 Del Method 97.9 F 66 16 128/82 H 97 Room Air 07/06/22 08:23 07/06/22 08:23 07/06/22 08:23 07/06/22 08:23 07/05/22 01:21 07/06/22 08:23 Oxygen Delivery Method Room Air Weight: 165 lb 8 oz Body Mass Index (BMI) 31.2 Intake & Output: Intake and Output for Last 24 Hours 07/04/22 07/05/22 07/06/22 23:59 23:59 23:59 Intake Total 1730.80 / 1730.80 333 / 333 Output Total 100 / 100 1100 / 1100 Balance 1630.80 / 1630.80 -767 / -767 Lab / Micro Data Result Diagrams: 07/04/22 18:10 Micro: Microbiology 07/04/22 18:10 Nasal Secretion SARS-CoV-2 Antigen (Rapid) - Final ROS Constitutional Constitutional: Denies chills, fatigue, fever(s), poor appetite or weakness Eyes Eyes: Denies blurry vision, change in vision, seeing flashes or spots in vision ENT HEENT: Denies dizziness, headache(s), loss taste/smell or sore throat Cardiovascular Cardiovascular: Denies chest pain, dizziness, dyspnea, irregular heart rhythm, palpitations or rapid heart rate Respiratory/Chest Respiratory/Chest: Denies chest tightness, cough, dyspnea or breast pain Gastrointestinal Gastrointestinal: Denies abdominal pain, constipation or vomiting Genitourinary Genitourinary: Denies dysuria or flank pain Musculoskeletal Musculoskeletal: Denies difficulty walking, joint pain, limited range of motion or numbness Neurologic Neurologic: Denies abnormal movements, abnormal speech, dizziness, numbness, seizure-like activity or syncope Psychiatric Psychiatric: Denies anxiety, behavioral changes, change in appetite, confusion, depression or suicidal thoughts Physical Exam Const alert, oriented x3 and no apparent distress General Appearance: cooperative and comfortable Resp normal respiratory effort Cardio regular rate GI normal to inspection, nondistended, normoactive bowel sounds GI Narrative: uterus is firm below umbilicus Palpation: soft Bimanual Exam - Adnexa, Other: Negative for cul-de-sac fullness Back/Spine no CVA tenderness and thoraco-lumbar ROM normal Extremity normal to inspection, no clubbing, cyanosis or edema, no calf tenderness and no pedal edema Psych mental status grossly normal, thought process normal, cooperative, affect normal, speech normal, activity/motor behavior normal, denies homicidal ideation and denies suicidal ideation Assessment & Plan (1) Vaginal delivery: COMMENT: SM IOL 04/12 bpp mec 37 girl Lia PLAN: s/p PPD # 2 1. routine post delivery care 2. breast feeding- support given 3. rh positive 4. rubella immune 5. h/o depression and anxiety. she declines antidepressants but admits she uses/used THC during the to cope with her depression. I have recommended against that and recommend that she sees her counselor as needed and soon after discharge. She states that she currently has no symptoms of anxiety and depression and states that she was only depressed because her grandfather (like a father) during the .
[2022-07-06 11:48] VITALS: BP 124/79; PULSE 63; RESP 16; TEMP 36.3
--- NOTE | 2022-07-10 13:27 | NURSING ---
Follow up phone call completed. Spoke with mother by phone. She is doing well. Bleeding has decreased since delivery. No concerns of headache, visual changes, flu-like symptoms, emotional changes. No questions about discharge instructions and no concerns at this time. Baby is doing well and eating well. Mother has tons of breastmilk. She does not want a appt at this time.
== END 2022-07-06 13:05 | disposition home or self-care (01) | DRG 560 ==
LOC: WPOUT 17:37 → WP 17:37
PROVIDERS: Admitting Provider Obstetrics & Gynecology; PCP Family Medicine Sports Medicine; Referring Provider Obstetrics & Gynecology; Visit Provider Obstetrics & Gynecology
DX: O70.0 First degree perineal laceration during delivery (principal); Z37.0 Single live birth; O99.324 Drug use complicating childbirth; F41.8 Other specified anxiety disorders; F12.90 Cannabis use, unspecified, uncomplicated; O77.0 Labor and delivery complicated by meconium in amniotic fluid; Z87.891 Personal history of nicotine dependence; O99.344 Other mental disorders complicating childbirth; Z14.8 Genetic carrier of other disease; Z3A.37 37 weeks gestation of pregnancy
CPT/HCPCS: 59025; 59050; 76819; 80307; 85025; 86850; 86900; 86901; 87426; 99218; J7120; A4216; G0378; J2405

== ENCOUNTER → 2024-06-28 | Outpatient (CLI) | payer MEDICAID, SELFPAY ==
[2024-06-28 12:12] LABS: Absolute Lymphocyte Count 1.56 X10^3/uL (0.83-4.51); Absolute Neutrophil Count 6.2 X10^3/uL (2.0-7.7); Basophil# 0.02 X10^3/uL; Basophil% 0.2 % (0-1); Eosinophil# 0.04 X10^3/uL; Eosinophils% 0.5 % (0-5); Hematocrit 38.9 % (37-47); Hemoglobin 12.9 g/dL (12.0-15.0); Lymphocyte # 1.56 X10^3/ul (0.83-4.51); Lymphocyte % 18.9 % (19-41); Mean Corp Hgb Conc 33.2 g/dL (32-36); Mean Corpuscular Hgb 29.5 pg (27.0-32.0); Mean Platelet Vol. 9.6 fl (6.2-12.0); Monocyte# 0.36 X10^3/uL; Monocyte% 4.4 % (0-10); NRBC Flagged by Analyzer 0 % (0-5); Neutrophil # 6.17 X10^3/uL (2.7-7.7); Neutrophil % 74.8 % (47-70); Platelet Count 258 K/mm3 (150-450); RBC Distribution Width CV 12.7 % (11.6-14.6); RBC Distribution Width SD 41.6 fl (35.1-43.9); Red Blood Count 4.37 M/mm3 (4.2-5.4); White Blood Count 8.3 K/mm3 (4.4-11.0)
[2024-06-28 13:15] LABS: HIV - WCH Non-Reactive (Nonreactive); Hepatitis B Surface Antigen Non-Reactive (Nonreactive); Hepatitis C Antibody Non-Reactive (Nonreactive); Rubella IgG Equiv (Nonreactive); Syphilis Antibodies Non-reactive
[2024-07-01 06:09] LABS: Chlamydia By Nucleic Acid AMP Negative (Negative); Gonococcus By Nucleic Acid AMP Negative (Negative)
== END | disposition home or self-care (01) ==
PROVIDERS: PCP Family Medicine Sports Medicine; Referring Provider Advanced Practice Midwife; Visit Provider Advanced Practice Midwife
DX: O99.320 Drug use complicating pregnancy, unspecified trimester (principal); F12.99 Cannabis use, unspecified with unspecified cannabis-induced disorder; Z3A.00 Weeks of gestation of pregnancy not specified
CPT/HCPCS: 36415; 85025; 86703; 86762; 86780; 86803; 86850; 86900; 86901; 87086; 87088; 87340; 87491; 87591

== ENCOUNTER → 2024-10-12 | Outpatient (CLI) | payer MEDICAID, SELFPAY ==
[2024-10-12 11:12] LABS: Absolute Lymphocyte Count 1.71 X10^3/uL (0.83-4.51); Absolute Neutrophil Count 9.9 X10^3/uL (2.0-7.7); Basophil# 0.03 X10^3/uL; Basophil% 0.2 % (0-1); Eosinophil# 0.07 X10^3/uL; Eosinophils% 0.6 % (0-5); Hematocrit 35.9 % (37-47); Hemoglobin 12.2 g/dL (12.0-15.0); Lymphocyte # 1.71 X10^3/ul (0.83-4.51); Lymphocyte % 13.9 % (19-41); Mean Corpuscular Hgb 31.1 pg (27.0-32.0); Mean Corpuscular Volume 91.6 fL (81-99); Mean Platelet Vol. 9.7 fl (6.2-12.0); Monocyte# 0.53 X10^3/uL; Monocyte% 4.3 % (0-10); NRBC Flagged by Analyzer 0 % (0-5); Neutrophil # 9.85 X10^3/uL (2.7-7.7); Neutrophil % 80.3 % (47-70); Platelet Count 300 K/mm3 (150-450); RBC Distribution Width CV 12.9 % (11.6-14.6); RBC Distribution Width SD 42.5 fl (35.1-43.9); Red Blood Count 3.92 M/mm3 (4.2-5.4); White Blood Count 12.3 K/mm3 (4.4-11.0)
[2024-10-12 13:13] LABS: Glucose Challenge Gest 1H 50g 138 mg/dL (70-140)
[2024-10-12 13:22] LABS: HIV - WCH Non-Reactive (Nonreactive); Syphilis Antibodies Non-reactive
== END | disposition home or self-care (01) ==
LOC: BWCLAB 10:28
PROVIDERS: PCP Family Medicine Sports Medicine; Referring Provider Nurse Practitioner Women's Health; Visit Provider Nurse Practitioner Women's Health
DX: Z34.92 Encounter for supervision of normal pregnancy, unspecified, second trimester (principal)
CPT/HCPCS: 36415; 82950; 85025; 86703; 86780

== ENCOUNTER → 2024-10-15 | Outpatient (CLI) | payer MEDICAID, SELFPAY ==
[2024-10-15 10:17] LABS: Bedside Glucose 95 mg/dL (74-106)
[2024-10-15 11:02] LABS: Glucose GTT-Gestation. Fasting 99 mg/dL (<105)
[2024-10-15 11:41] LABS: Glucose GTT-Gestational 1 Hr 111 mg/dL (<190)
== END | disposition home or self-care (01) ==
LOC: LAB 09:44
PROVIDERS: PCP Family Medicine Sports Medicine; Referring Provider Nurse Practitioner Women's Health; Visit Provider Nurse Practitioner Women's Health
DX: O99.810 Abnormal glucose complicating pregnancy (principal); Z3A.00 Weeks of gestation of pregnancy not specified
CPT/HCPCS: 36415; 82951; 82952; 82962

== ENCOUNTER → 2024-10-20 | Outpatient (CLI) | payer MEDICAID, SELFPAY ==
[2024-10-20 07:13] LABS: Bedside Glucose 103 mg/dL (74-106)
[2024-10-20 07:19] LABS: Glucose GTT-Gestation. Fasting 107 mg/dL (<105)
[2024-10-20 08:49] LABS: Glucose GTT-Gestational 1 Hr 167 mg/dL (<190)
== END | disposition home or self-care (01) ==
LOC: LAB 06:46
PROVIDERS: PCP Family Medicine Sports Medicine; Referring Provider Nurse Practitioner Women's Health; Visit Provider Nurse Practitioner Women's Health
DX: Z13.1 Encounter for screening for diabetes mellitus (principal)
CPT/HCPCS: 36415; 82951; 82952; 82962

== ENCOUNTER → 2024-12-08 | Outpatient (CLI) | payer MEDICAID, SELFPAY ==
[2024-12-08 11:44] LABS: Absolute Lymphocyte Count 1.99 X10^3/uL (0.83-4.51); Absolute Neutrophil Count 12.5 X10^3/uL (2.0-7.7); Basophil# 0.03 X10^3/uL; Basophil% 0.2 % (0-1); Eosinophil# 0.03 X10^3/uL; Eosinophils% 0.2 % (0-5); Hematocrit 36.7 % (37-47); Lymphocyte # 1.99 X10^3/ul (0.83-4.51); Mean Corp Hgb Conc 32.7 g/dL (32-36); Mean Corpuscular Hgb 30.2 pg (27.0-32.0); Mean Corpuscular Volume 92.4 fL (81-99); Mean Platelet Vol. 9.6 fl (6.2-12.0); Monocyte# 0.73 X10^3/uL; Monocyte% 4.8 % (0-10); NRBC Flagged by Analyzer 0 % (0-5); Neutrophil # 12.46 X10^3/uL (2.7-7.7); Neutrophil % 81.1 % (47-70); Platelet Count 361 K/mm3 (150-450); RBC Distribution Width CV 12.6 % (11.6-14.6); Red Blood Count 3.97 M/mm3 (4.2-5.4); White Blood Count 15.3 K/mm3 (4.4-11.0)
[2024-12-08 11:58] LABS: Protein, Urine (Random) 82.3 mg/dL (<11.9); Protein:Creat Ratio 224 mg/g CRE (0-200)
[2024-12-08 12:14] LABS: ALB/GLOB Ratio 0.8 RATIO (0.9-2.4); AST(SGOT) 16 U/L (15-37); Alanine Aminotransfer ALT/SGPT 18 U/L (13-56); Albumin, Serum 3.2 g/dL (3.2-5.0); Alkaline Phosphatase 145 U/L (45-117); Anion Gap 8 (5-15); BUN 7 mg/dL (7-18); BUN/Creat Ratio 12.9 RATIO (10-20); Calcium,Total 8.9 mg/dL (8.5-10.1); Chloride 106 mmol/L (98-107); Creatinine, Serum 0.54 mg/dL (0.55-1.02); EST Glomerular Filtration Rate 142 mL/min (>60); Est Glom Filt Rate - Afr Amer 172 mL/min (>60); Glucose 106 mg/dL (74-106); Potassium 3.6 mmol/L (3.5-5.1); Protein, Total 7.2 g/dL (6.4-8.2); Sodium Level 137 mmol/L (136-145)
== END | disposition home or self-care (01) ==
PROVIDERS: PCP Family Medicine Sports Medicine; Referring Provider Obstetrics & Gynecology; Visit Provider Obstetrics & Gynecology
DX: O09.92 Supervision of high risk pregnancy, unspecified, second trimester (principal); R80.9 Proteinuria, unspecified; Z3A.00 Weeks of gestation of pregnancy not specified
CPT/HCPCS: 36415; 80053; 82570; 84156; 85025

== ENCOUNTER → 2024-12-16 | Outpatient (CLI) | payer MEDICAID, SELFPAY ==
--- NOTE | 2024-12-16 11:28 | US_ITS ---
PROCEDURE: OB LIMITED WITH BIOMETRICS REASON FOR EXAM: growth. COMPARISON: None. FINDINGS Number: 1 Position: Vertex Placental Position: Fundal Placental Abnormalities: None. DIMENSIONS: Biparietal Diameter: 8.5 cm/34 weeks and 2 days: 13% Head Circumference: 30.9 cm/34 weeks and 4 days: 3% Abdominal Circumference: 32.2 cm/36 weeks and 1 day: 64% Femur Length: 6.6 cm/34 weeks and 1 day: 8% ESTIMATED WEIGHT: 2667 g plus/-400 g ESTIMATED WEIGHT PERCENTILE (24+ weeks): 35 ESTIMATED GESTATIONAL AGE: Baseline: 36 weeks and 0 days By Ultrasound: 34 weeks and 5 days ESTIMATED DATE OF DELIVERY: Baseline: January 13, 2025 By Ultrasound: January 22, 2025 BIOPHYSICAL ASSESSMENT: Amniotic Fluid Volume: Subjectively normal. Amniotic Fluid Index: (8-24 cm normal range) Cardiac Motion: 135 beats per minute (average) Trunk and Limb Motion: Present. MATERNAL ANATOMY: Adnexa: Neither maternal ovary is successfully identified. US/OB Limited With Biometrics IMPRESSION: Single live intrauterine gestation with a mean gestational age of 34 weeks and 5 days. Reading Location: [place] [id number]
== END | disposition home or self-care (01) ==
LOC: US 11:27
PROVIDERS: PCP Family Medicine Sports Medicine; Referring Provider Advanced Practice Midwife; Visit Provider Advanced Practice Midwife
DX: O99.810 Abnormal glucose complicating pregnancy (principal); Z3A.36 36 weeks gestation of pregnancy
CPT/HCPCS: 76816

== ENCOUNTER → 2024-12-22 | Outpatient (CLI) | payer MEDICAID, SELFPAY | END | disposition home or self-care (01) | LOC: LABSPEC 11:32 | PROVIDERS: PCP Family Medicine Sports Medicine; Referring Provider Advanced Practice Midwife; Visit Provider Advanced Practice Midwife | DX: O09.92 Supervision of high risk pregnancy, unspecified, second trimester (principal); Z3A.00 Weeks of gestation of pregnancy not specified | CPT/HCPCS: 87081 ==

== ENCOUNTER 2025-01-03 17:00 | Inpatient (IN) | payer MEDICAID, SELFPAY ==
[2025-01-03] VITALS (57 sets, daily range): BP systolic 95–143; BP diastolic 51–78; PULSE 74–107; RESP 16–18; TEMP 36.1–37.2; O2SAT 97–100; BMI 29.9
[2025-01-03] MEDS: Lactated Ringers 1,000 ML 50 ML IV (17:45)
--- NOTE | 2025-01-03 17:55 | HP.PCM.OB_ITS ---
HPI - General General Date of Admission: 01/03/25 Date of Service: 01/03/25 HPI Narrative JUVENAL URIBE, is a 29 F 38.4 weeks who presents to unit in active labor. Admission orders given and epidural requested Maternal Data Information ERNIE Calculator Estimated Delivery Date Method Current WG Current Estimate 01/13/25 Ultrasound #1 38w 4d Other Estimates 01/09/25 Ultrasound #2 39w 1d Final ERNIE: 01/13/25 Final ERNIE Source: US >20 weeks Gestational age: 38.4 [facility] Medical History Sterilization Vaginal delivery Depression Anxiety Marijuana use History of asthma Home Medications ?Medication ?Instructions ?Recorded ?Last Taken ?Type docosahexaenoic acid 200 mg mg PO 06/25/24 Unknown His tory capsule ( DHA) blood sugar diagnostic (Blood #120 ea 10/20/24 Unknown Rx Glucose Test strips) blood-glucose meter #1 ea 10/20/24 Unknown Rx lancets 30 gauge (Droplet Lancets) #200 ea 10/20/24 Un known Rx flash glucose scanning reader #1 ea 11/10/24 Unknown R x (FreeStyle Chuck 2 [place]) flash glucose sensor (FreeStyle #1 ea 11/24/24 Unknown Rx Chuck 2 Sensor kit) Allergy/AdvReac Type Severity Reaction Status Date / Time No Known Allergies Allergy Verified 12/31/24 11:01 Surgical History History of wisdom tooth extraction History of tonsillectomy Social History adopted: No household members: children and other details: Grandpa number of children: 2 current occupational status: unemployed current occupation: [employer] current occupational exposures/hazards: No pets and animals: Yes pets and animals: dog(s) and fish sexually active: Yes Smoking Status: Never smoker alcohol intake: never details: 1-2 drinks before she knew substance use type: marijuana well-balanced diet: about half the time caffeine: Yes (reduce with ) Type: carbonated beverages eating out: rarely or never during the past year weight has: remained stable what type of physical activity do you participate in: none seatbelt use: always do you feel safe at home: Yes additional social history: BF: Neha History 3 Elective abortions Hx Para 2 Spontaneous abortions Hx # Term Pregnancies Ectopic pregnancies Hx # Pregnancies Multiple births # of living children 2 Past Pregnancies Del. Date Name GA/Weeks Outcome Route Bth Weight Infant Gen Labor Lgth Ane sthesia Del Locatn Provider FOB 10/19/13 Ender 38 live - full term vacuum 7# 11oz Male 6 hr ep idural [facility] Seals not involved 07/19/22 Lia 37 live - full term 6lbs 15oz Female epidural [facility] Neha Delivery Date: 10/19/13 Last Updated by: Hailey Cunha BAR WELDER, BAR WELDER-C SROM. Delivery Date: 07/19/22 Last Updated by: Marina Hernandez MD IOL 04/12 bpp mec 37 girl Lia Visit Details Expected Delivery Route/Plan Labor Preferences- CB/BF classes: no labor support person: Luke labor intervention preferences: [] pain management options preferred: epidural cut cord/dad catch: cord : yes PP control planned: discussed discussed possible routes of delivery and associated risks: [] special requests: [] Plans Covid status: [] Flu vaccine: declines Tdap vaccine: declines Rhogam: na LARC form signed:yes movement and labor precautions reviewed. Problem list reviewed and updated with the most current plan of care details and appropriate orders placed. Relevant counseling for the gestational age provided. Continue routine care and follow up unless otherwise noted in visit notes/problem list details OB Flowsheet Initial Weight: Not Recorded Date -?-?-?-?-?-?-?-?-?-?-?-?- EGA Weight BP Urine Prot -?-?-?-?-?-?-?-?-?-?-?-?- Glucose FHR FuHt Pres Dilation -?-?-?-?-?-?-?-?-?-?-?-?- Effaced St Visit Note 06/28/24 -?-?-?-?-?-?-?-?-?-?-?-?- 11w 4d 145 lb 6 oz 105/63 -?-?-?-?-?-?-?-?-?-?-?-?- 147 -?-?-?-?-?-?-?-?-?-?-?-?- KW- Had US at [place] for dates, CRL 50.4, GA 12.1 today. Cons with dates from [place]. [facility] anatomy US ordered. Accepts NIPT 07/27/24 -?-?-?-?-?-?-?-?-?-?-?-?- 15w 5d 145 lb 114/71 Negative -?-?-?-?-?-?-?-?-?-?-?-?- Negative 145 -?-?-?-?-?-?-?-?-?-?-?-?- SM- no vb crampi ng 08/16/24 -?-?-?-?-?-?-?-?-?-?-?-?- 18w 4d 146 lb 4 oz 101/63 Nega tive -?-?-?-?-?-?-?-?-?-?-?-?- Negative 145 -?-?-?-?-?-?-?-?-?-?-?-?- JV- no lof, vagi nal bleeding, or cramping. no complaints other than c onstipation. remedies discussed. anatomy scan for 08/1909/15/24 -?-?-?-?-?-?-?-?-?-?-?-?- 22w 6d 153 lb 2 oz 114/66 Nega tive -?-?-?-?-?-?-?-?-?-?-?-?- Negative 146 -?-?-?-?-?-?-?-?-?-?-?-?- MH-No VB. Good F M. Struggling with hemorrhoids diamond with BM. Has bleeding. Reviewed daily use of fiber/stool softerner. Anusol prn w/flares. 10/12/24 -?-?-?-?-?-?-?-?-?-?-?-?- 26w 5d 154 lb 106/70 Negative -?-?-?-?-?-?-?-?-?-?-?-?- Negative 140 26 -?-?-?-?-?-?-?-?-?-?-?-?- SM- no vb lof go od fm no regular ctx 10/28/24 -?-?-?-?-?-?-?-?-?-?-?-?- 29w 0d 158 lb 4 oz 115/72 Nega tive -?-?-?-?-?-?-?-?-?-?-?-?- Negative 142 30 -?-?-?-?-?-?-?-?-?-?-?-?- MH-No VB, LOF. G ood FM. >90% glucose readings WNL. Missed some. Will cont to check QID until next appt. Low lying placenta resolved. 11/09/24 -?-?-?-?-?-?-?-?-?-?-?-?- 30w 5d 157 lb 6 oz 111/63 Trac e -?-?-?-?-?-?-?-?-?-?-?-?- Negative 129 30 -?-?-?-?-?-?-?-?-?-?-?-?- JV- still having trouble remembering to document glucose log. will see if we can get her a chuck system. in meantime, she was told to focus on her fasting levels only 11/24/24 -?-?-?-?-?-?-?-?-?-?-?-?- 32w 6d 161 lb 2 oz 106/68 Nega tive -?-?-?-?-?-?-?-?-?-?-?-?- Negative 125 32 -?-?-?-?-?-?-?-?-?-?-?-?- KW- no vb/lof/ct x. good fm. KW- no vb/lof/ctx. good fm. Had brought readings in on monitor. Now checking BS 7-8 times daily and multiple times throughout the night. No consistency on when she is taking blood sugars, and does not remember which numbers are fasting She is waking up throughout the night and drinking soda. It appears as though most of her BS are under 95 with 2/14 elevated over 95. Instructed to be more consistent with doing 4 sugars a day and not checking throughout the night unless she feels symptomatic and try a protein snack at night instead of soda. 36 week US ordered. 12/08/24 -?-?-?-?-?-?-?-?-?-?-?-?- 34w 6d 158 lb 4 oz 112/71 1+ -?-?-?-?-?-?-?-?-?-?-?-?- Negative 135 35 Cephalic 1 .5 -?-?-?-?-?-?-?-?-?-?-?-?- SM- BS revewied and almost all WNL with more consistentcy to checking, does not appear to have diabetes, instructed to stop checking. growth US scheduled. has had vomiting the last two days, no sick contacts. check labs today. 12/15/24 -?-?-?-?-?-?-?-?-?-?-?-?- 35w 6d 162 lb 2 oz 107/60 Nega tive -?-?-?-?-?-?-?-?-?-?-?-?- Negative 125 35 -?-?-?-?-?-?-?-?-?-?-?-?- SM- no vb lof go od fm no reugar ctx no reuglar ctx 12/22/24 -?-?-?-?-?-?-?-?-?-?-?-?- 36w 6d 165 lb 6 oz 109/71 Nega tive -?-?-?-?-?-?-?-?-?-?-?-?- Negative 130 36 Cephalic 3 -?-?-?-?-?-?-?-?-?-?-?-?- 50 -2 KW- no vb/ lof/ctx. good fm. GBS today. labor precautions 12/30/24 -?-?-?-?-?-?-?-?-?-?-?-?- 38w 0d 164 lb 113/72 -?-?-?-?-?-?-?-?-?-?-?-?- 120 -?-?-?-?-?-?-?-?-?-?-?-?- MH-NST only reac tive for decreased FM. 12/31/24 -?-?-?-?-?-?-?-?-?-?-?-?- 38w 1d 161 lb 4 oz 113/70 Nega tive -?-?-?-?-?-?-?-?-?-?-?-?- Negative 130 37.5 3 3.5 -?-?-?-?-?-?-?-?-?-?-?-?- 60 -2 LC- no vb/ ctx/lof. good fm. LC- no vb/ctx/lof. good fm.g bs neg NST FHR Rate Baby A Baseline: 130 Variability:: Moderate Accelerations:: 15 x 15 Decelerations:: None NST Reactive:: Yes FHR Category:: Category I Uterine Activity:: 2-3 minutes ROS Constitutional Constitutional: Denies change in weight, fatigue, fever(s), headache(s), poor appetite or weakness Eyes Eyes: Denies blurry vision, change in vision, floaters, seeing flashes or spots in vision ENT HEENT: Denies dizziness, headache(s), loss taste/smell or sore throat Cardiovascular Cardiovascular: Denies chest pain, dizziness, dyspnea, irregular heart rhythm, lightheadedness, palpitations or rapid heart rate Respiratory/Chest Respiratory/Chest: Denies change in mental status, chest tightness, cough, dyspnea or breast pain Gastrointestinal Gastrointestinal: Denies anorexia, chewing difficulty, constipation, diarrhea or weight changes Genitourinary Genitourinary: Denies difficulty urinating, dysuria, flank pain, genital pain, urinary frequency or urinary urgency Musculoskeletal Musculoskeletal: Denies back pain, difficulty walking, extremity pain, joint pain, muscle cramps or muscle weakness Integumentary Integumentary: Denies lesions or unusual bruising Neurologic Neurologic: Denies abnormal movements, abnormal speech, dizziness, numbness, seizure-like activity, syncope or weakness Psychiatric Psychiatric: Denies behavioral changes, change in appetite, confusion, depression, homicidal ideation, suicidal ideation or suicidal thoughts Endocrine Endocrinology: Denies excessive sweating, polydipsia or polyuria Hematologic/Lymphatic Hematologic/Lymphatic: Denies anemia Allergic/Immunologic Allergic/Immunologic: Denies itchy eyes, lip swelling, throat swelling, tongue swelling or wheezing Vital Signs Vital Signs Vital Signs: 01/03/25 17:48 01/03/25 17:48 01/03/25 17:49 Temperature Temperature Source Pulse Rate 88 89 Respiratory Rate Blood Pressure 133/77 H BP Systolic 133 BP Diastolic 77 Pulse Ox 01/03/25 17:49 01/03/25 17:50 01/03/25 17:50 Temperature Temperature Source Temporal Pulse Rate Respiratory Rate 18 Blood Pressure BP Systolic BP Diastolic Pulse Ox 99 01/03/25 17:50 Temperature 97.0 F L Temperature Source Pulse Rate Respiratory Rate Blood Pressure BP Systolic BP Diastolic Pulse Ox Weight Weight: 158 lb 11.725 oz Body Mass Index (BMI) 29.9 Physical Exam Const alert, oriented x3 and no apparent distress General Appearance: cooperative Orientation / Consciousness: awake HEENT normocephalic Neck full ROM Lymph Lymphatic: no lymphadenopathy noted Chest inspection of chest normal Resp normal respiratory effort and normal air movement Effort and Inspection: able to speak in complete sentences and symmetric chest movement GI soft to palpation and non-tender Inspection: gravid Palpation: soft; Negative for tender external exam normal Back/Spine normal to inspection Extremity normal to inspection and full ROM Skin no rashes or lesions noted Psych mental status grossly normal Appearance: grossly normal Speech: normal speech Labs Labs Labs: Blood Type B POSITIVE Antibody Screen NEGATIVE Hct 36.7 % (37-47) L Hgb 12.0 g/dL (12.0-15.0) Obstetrics Ultrasound Syphilis Total Ab Non-reactive VZV IgG Antibody 1038 index (Immune >165) Rubella IgG Antibody Equiv (Nonreactive) Hep Bs Antigen Non-Reactive (Nonreactive) Hepatitis C Antibody Non-Reactive (Nonreactive) Chlamydia DNA (DONALD) Negative (Negative) N.gonorrhoeae DNA (DONALD) Negative (Negative) HIV 1&2 Antibody Non-Reactive (Nonreactive) Glucose 1 Hr 50 gm 138 mg/dL (70-140) Gest Glucose Tolerance MG/DL Group B Strep DNA Negative (Negative) Rhogam given: No Assessment & Plan (1) Active labor: PLAN: Patient presents IAL, plan expectant management for , pitocin/AROM PRN if needed. Pain management: plans epidural. GBS neg. Management of any complications: none I have reviewed the [facility] and made any clinically relevant updates. Dr Aguirre aware of assessment, plan and admission. agrees with above (2) Abnormal glucose affecting : COMMENT: Tried 3 hr GTT twice,vomited both times. Testing sugars QID. >90% readings nl.reveiwed again and almost all WNL. (3) Hemorrhoid prolapse: (4) Rubella non-immune status, antepartum: COMMENT: equivocal. offer MMR PP (5) Supervision of high-risk : QUALIFIERS: Trimester: second trimester Qualified Code(s): O09.92 - Supervision of high risk , unspecified, second trimester COMMENT: PRR,, ERNIE 01/13/25, boy PC: Debbie, BF: Neha (6) : QUALIFIERS: Weeks of gestation: 38 weeks Qualified Code(s): Z3A.38 - 38 weeks gestation of COMMENT: gbs neg, NIPT low risk, normal anatomy (7) Depression with anxiety: COMMENT: no meds at present, trintellix in past. sees psychiatrist (8) Marijuana use: COMMENT: last use may 2024 Charges/Coding Multi Select Codes Urinary/Genital Urinary/Genital CPT Codes: No Charge
[2025-01-03 18:02] LABS: Absolute Lymphocyte Count 2.44 X10^3/uL (0.83-4.51); Absolute Neutrophil Count 18.4 X10^3/uL (2.0-7.7); Basophil# 0.06 X10^3/uL; Basophil% 0.3 % (0-1); Eosinophil# 0.06 X10^3/uL; Eosinophils% 0.3 % (0-5); Hemoglobin 12.6 g/dL (12.0-15.0); Lymphocyte # 2.44 X10^3/ul (0.83-4.51); Lymphocyte % 10.9 % (19-41); Mean Corp Hgb Conc 34.1 g/dL (32-36); Mean Corpuscular Hgb 30.5 pg (27.0-32.0); Mean Corpuscular Volume 89.6 fL (81-99); Mean Platelet Vol. 9.9 fl (6.2-12.0); Monocyte# 1.25 X10^3/uL; Monocyte% 5.6 % (0-10); NRBC Flagged by Analyzer 0 % (0-5); Neutrophil # 18.42 X10^3/uL (2.7-7.7); Neutrophil % 82.2 % (47-70); Platelet Count 387 K/mm3 (150-450); RBC Distribution Width CV 12.4 % (11.6-14.6); RBC Distribution Width SD 40.3 fl (35.1-43.9); Red Blood Count 4.13 M/mm3 (4.2-5.4); White Blood Count 22.4 K/mm3 (4.4-11.0)
[2025-01-03 18:17] LABS: Syphilis Antibodies Nonreactive (Nonreactive)
[2025-01-03] MEDS: fentaNYL-bupivacaine (epidural) 100 ML BAG EPIDURAL (18:19)
[2025-01-03 19:22] LABS: Squamous Epithelial Cells - UA 0 SEEN /hpf (5-10)
--- NOTE | 2025-01-03 19:28 | PCM.PN.BLA ---
Progress Note comfortable with epidural current tracing: FHT: 135 Moderate variability reactive no decelerations category I tracing [place]: 2-3 minute Contractions Membranes:AROm 1920 clear SVE:990/0 A/P: Continue with position changes Epidural per anesthesia GBS neg Anticipate Dr Aguirre aware of above assessment and agrees with plan of care Assessment & Plan Assessment/Plan (1) Active labor: (2) Decreased movement: QUALIFIERS: Fetus number: single or unspecified fetus Trimester: third trimester Qualified Code(s): O36.8130 - Decreased movements, third trimester, not applicable or unspecified (3) Abnormal glucose affecting : (4) Hemorrhoid prolapse: (5) Rubella non-immune status, antepartum: (6) Supervision of high-risk : QUALIFIERS: Trimester: second trimester Qualified Code(s): O09.92 - Supervision of high risk , unspecified, second trimester (7) : QUALIFIERS: Weeks of gestation: 38 weeks Qualified Code(s): Z3A.38 - 38 weeks gestation of (8) Depression with anxiety: (9) Marijuana use: Multi Select Codes Urinary/Genital Urinary/Genital CPT Codes: No Charge
[2025-01-03 19:37] LABS: Color, Urine Yellow (Yellow); Glucose, Dipstick Normal (Normal); Leukocyte Esterase-Dipstick Negative /ul (Negative); Nitrite-Dipstick Negative (Negative); Occult Blood-Urine 10 /ul (Negative); Protein-Dipstick 30 mg/dl (Negative); Urine Bilirubin Dipstick Negative (Negative); Urine Clarity Sl. Cloudy (Clear); Urine Urobilinogen 1 mg/dl (Normal)
[2025-01-03 19:41] LABS: Ketone-Dipstick 150 mg/dl (Negative)
[2025-01-03] MEDS: Oxytocin 15 Units/NS 250ml 15 UNITS/250 ML IV.SOLN 334 UNITS IV (19:42)
[2025-01-03 19:53] LABS: Barbiturate Urine NEGATIVE (< 200 ng/mL); Benzodiazepine Urine NEGATIVE (< 200 ng/mL); Cocaine Urine NEGATIVE (< 300 ng/mL); Ecstacy Urine NEGATIVE (< 500 ng/mL); Methadone Urine NEGATIVE (< 300 ng/mL); Opiates Urine NEGATIVE (< 300 ng/mL); PCP Urine NEGATIVE (< 25 ng/mL); THC Urine PREUMTIVE POSITIVE (< 50 ng/mL)
--- NOTE | 2025-01-03 19:53 | EX.PCM.OBVAG ---
Assessment & Plan (1) Vaginal delivery: COMMENT: KW SHAHEEN Myers (2) Active labor: (3) Decreased movement: QUALIFIERS: Fetus number: single or unspecified fetus Trimester: third trimester Qualified Code(s): O36.8130 - Decreased movements, third trimester, not applicable or unspecified COMMENT: NST 12/30/24 (4) Abnormal glucose affecting : COMMENT: Tried 3 hr GTT twice,vomited both times. Testing sugars QID. >90% readings nl.reveiwed again and almost all WNL. (5) Hemorrhoid prolapse: (6) Rubella non-immune status, antepartum: COMMENT: equivocal. offer MMR PP (7) Supervision of high-risk : QUALIFIERS: Trimester: second trimester Qualified Code(s): O09.92 - Supervision of high risk , unspecified, second trimester COMMENT: PRR,, ERNIE 01/13/25, ramon PC: Debbie, BF: Neha (8) : QUALIFIERS: Weeks of gestation: 38 weeks Qualified Code(s): Z3A.38 - 38 weeks gestation of COMMENT: gbs neg, NIPT low risk, normal anatomy (9) Depression with anxiety: COMMENT: no meds at present, trintellix in past. sees psychiatrist (10) Marijuana use: COMMENT: last use may 2024 Maternal Data Information ERNIE Calculator Estimated Delivery Date Method Current WG Current Estimate 01/13/25 Ultrasound #1 38w 4d Other Estimates 01/09/25 Ultrasound #2 39w 1d Final ERNIE: 01/13/25 Final ERNIE Source: US >20 weeks Gestational age: 38.4 Vaginal Delivery Maternal Presentation Maternal Presentation: Active Labor Maternal Presentation: Presented to unit for active labor at 38.4 weeks Vaginal Delivery Information Procedure Performed: Spontaneous Vaginal Delivery Surgeon/Practitioner: Jennifer Millan Date of Procedure: 01/03/25 Pre-Procedure Diagnosis: see problem list Post-Procedure Diagnosis: same Type of anesthesia: Epidural Estimated Blood Loss: 300 Time of Delivery: 19:38 Findings Description of procedure: Progressed well to 10cm dilated and made steady progress with effective maternal pushing. Delivered the head in AVELINA presentation. The head was delivered atraumatically and a loose nuchal cord x2 was identified and was easily reduced over the 's head. The anterior and posterior shoulders delivered without complication followed by the rest of the and the infant was placed on the maternal abdomen. Delayed cord clamping was employed for approximately 3 minutes. Cord was clamped and cut and gentle traction was applied to the cord and the placenta delivered spontaneously. Immediately following, it was noted to be intact with a 3 vessel cord. Uterine bleeding stable. The perineum and vagina were inspected and noted to have a first degree laceration which was repaired with 3-0 Vicryl in the usual fashion. EBL was 300cc. Patient and infant tolerated delivery well. Apgars 8/9. Dr Badillo notified of vaginal delivery and orders reviewed. Physician agrees with current plan of care. 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
[2025-01-03 19:56] LABS: Amorphous Sediment 3+; Bacteria 2+ /hpf (None Seen); Mucous, Urine RARE /hpf (<or=2+); Red Blood Cells-Urine 0 SEEN /hpf (0-5); White Blood Cells 0-5 SEEN /hpf (0-5)
--- NOTE | 2025-01-03 19:57 | DCINST_ITS ---
Discharge Instructions Diet Discharge Diet: No restrictions DC O2, CPAP, BIPAP needs Home O2 Discharge instructions: No Dressing / Incision Discharge Activity: Return to Normal Activity May resume sexual activity in: 6-8 weeks Dressing / Incision Call your doctor if you observe: Fever of 101 or Higher, Coldness, Increased Pain, Numbness or Tingling, Change in Color, Inability to urinate, Inability to have a bowel movement, Using more than 1 pad per hour, Shortness of breath, Dizziness, Fainting spells, Swelling in the ankles, Chest pain, Increased p alpitations (irregular heartbeat), Calf discomfort and Uncontrolled pain Follow Up Care Please Follow Up With: Jennifer Millan CNM When: Please call the office to schedule your follow up appointment in 6 weeks. If you had high blood pressure please call to schedule an appointment in 2 weeks. Test Results: Test results from this visit will be discussed in further detail at your follow- up appointment, if applicable. Discharge Plan Admission Admit Date/Time: 01/03/25 17:00 Attending Provider: Jennifer Millan Primary Care Provider: Layla Dougherty Discharge Orders/Prescriptions Prescriptions: No Action DHA 200 mg capsule 200 mg PO DAILY (DME) FreeStyle Chuck 2 [place] Misc See Rx Instructions .Route Qty: 1 0RF Rx Instructions: As directed (DME) FreeStyle Chuck 2 Sensor Kit See Rx Instructions .Route Qty: 1 0RF Rx Instructions: As directed (DME) Blood Glucose Test Strip See Rx Instructions .ROUTE .MEDSUPPLY Qty: 120 6RF Rx Instructions: Check blood sugars Fasting and 2 hours after breakfast, lunch, and dinner. (DME) blood-glucose meter Misc See Rx Instructions .ROUTE .MEDSUPPLY Qty: 1 0RF Rx Instructions: As directed (DME) lancets [Droplet Lancets] 30 gauge misc See Rx Instructions .ROUTE .MEDSUPPLY Qty: 200 6RF Rx Instructions: Check blood sugars fasting and 2 hours after breakfast, lunch, and supper. Referrals / Follow Up: Layla Dougherty MD [Primary Care Provider] -
[2025-01-03] MEDS: Oxytocin 15 Units/NS 250ml 15 UNITS/250 ML IV.SOLN 83 UNITS IV (20:24)
[2025-01-03] MEDS: Ibuprofen 600 MG Tablet PO (20:27)
[2025-01-03 20:34] LABS: Bedside Glucose 97 mg/dL (74-106)
[2025-01-03 21:50] LABS: Bedside Glucose 98 mg/dL (74-106)
[2025-01-03] MEDS: Acetaminophen 500 MG Tablet 1000 MG PO (23:37)
[2025-01-04] VITALS (11 sets, daily range): BP systolic 111–120; BP diastolic 56–61; PULSE 64–88; RESP 14–16; TEMP 36.3–36.8; O2SAT 97–99
[2025-01-04 01:16] LABS: Amphetamine Urine VISTA NEGATIVE (<1000 ng/mL)
[2025-01-04 06:32] LABS: Bedside Glucose 80 mg/dL (74-106)
--- NOTE | 2025-01-04 08:01 | PN.OBGYN_ITS ---
Subjective Subjective Patient doing well without complaints. Tolerating PO. Ambulating and voiding without difficulty. Feeding well. Denies chest pain, shortness of breath, calf pain/swelling, fevers, chills, lightheadedness. Objective Data Objective Data Vital Signs: Vital Signs Temp Pulse Resp BP Pulse Ox O2 Del Method 97.7 F L 69 16 113/61 98 Room Air 01/04/25 04:18 01/04/25 04:18 01/04/25 04:18 01/04/25 04:18 01/04/25 04:18 01/04/25 04:18 Oxygen Delivery Method Room Air Weight: 158 lb 11.725 oz Body Mass Index (BMI) 29.9 Intake & Output: Intake and Output for Last 24 Hours 01/02/25 01/03/25 01/04/25 23:59 23:59 23:59 Intake Total 520.07 / 520.07 Output Total 475 / 475 Balance 45.07 / 45.07 Lab / Micro Data 01/03/25 17:15 Labs: Laboratory Results - last 24 hr 01/03/25 17:15: WBC 22.4 H, RBC 4.13 L, Hgb 12.6, Hct 37.0, MCV 89.6, MCH 30.5, MCHC 34.1, RDW Std Deviation 40.3, RDW Coeff of Adriano 12.4, Plt Count 387, MPV 9.9, Immature Gran % (Auto) 0.700, Neut % (Auto) 82.2 H, Lymph % (Auto) 10.9 L, [place] % (Auto) 5.6, Eos % (Auto) 0.3, Baso % (Auto) 0.3, Absolute Neuts (auto) 18.4 H, Absolute Lymphs (auto) 2.44, Nucleated RBC % 0, Syphilis Total Ab Nonreactive, Blood Type B POSITIVE, Antibody Screen NEGATIVE 01/03/25 19:00: Urine Color Yellow, Urine Clarity Sl. Cloudy, Urine pH 7.0, Ur Specific [place] 1.010, Urine Protein 30 H, Urine Glucose (UA) Normal, Urine Ketones 150 A*, Urine Occult Blood 10 H, Urine Nitrite Negative, Urine Bilirubin Negative, Urine Urobilinogen 1 H, Ur Leukocyte Esterase Negative, Urine RBC 0 SEEN, Urine WBC 0-5 SEEN, Ur Squamous Epith Cells 0 SEEN, Amorphous Sediment 3+, Urine Bacteria 2+, Urine Mucus RARE, Urine Opiates Screen NEGATIVE, Urine Methadone Screen NEGATIVE, Ur Barbiturates Screen NEGATIVE, Ur Phencyclidine Scrn NEGATIVE, Ur Amphetamines Screen NEGATIVE, MDMA (Ecstasy) Screen NEGATIVE, U Benzodiazepines Scrn NEGATIVE, Urine Cocaine Screen NEGATIVE, U Cannabinoids Screen PREUMTIVE POSITIVE, Ur Drug Screen Comment 01/03/25 19:27: POC Glucose 97 01/03/25 21:09: POC Glucose 98 01/04/25 06:08: POC Glucose 80 Physical Exam Const alert and oriented x3 HEENT normocephalic Eyes PERRL Neck full ROM Resp normal respiratory effort GI soft to palpation GI Narrative: FF below U Assessment & Plan (1) Vaginal delivery: COMMENT: WILIAM Myers (2) Rubella non-immune status, antepartum: COMMENT: equivocal. offer MMR PP (3) Depression with anxiety: COMMENT: no meds at present, trintellix in past. sees psychiatrist PLAN: Plan s/p PPD # 1 1. routine post delivery care 2. breast feeding- support given 3. rh positive 4. rubella nonimmune 5. home today
[2025-01-04] MEDS: Ibuprofen 600 MG Tablet PO ×3 (08:03→20:48)
[2025-01-04] MEDS: Acetaminophen 500 MG Tablet 1000 MG PO ×2 (10:51→17:07)
[2025-01-04] MEDS: Senna/Docusate Sodium 1 Tablet PO (10:51)
--- NOTE | 2025-01-04 13:55 | CASEMGMT ---
Social Work Assessment Labor and Delivery Unit Patient Address: [address] [place], [place] [id number] Phone number: [phone] Date of Referral: 01/04/25 Time of Referral:? 0837 Referred By: Dr. Roger Date of Intervention: ??01/04/25 Time of Intervention:? 1314 Reason for Referral:? substance abuse Sw completed chart review and acknowledges social work consult due to maternal substance use during . Sw presented to bedside and introduced self to mother of baby (LYNN- Polina). MOB had other visitors present including, father of baby (FOB- Neha), both grandma's and MOB's two children. Sw offered to come at a later time when visitors were present, however visitors offered to leave and return later following sw assessment. History obtained from: medical records, MOB Household composition: LYNN states that she is currently residing in her father's home at address listed above. LYNN states that TAMAR does not live with her, he currently lives with his mom but does stay with her and the children from time to time. LYNN denies any housing concerns, stating that it is safe and secure. LYNN states that she has had difficulty obtaining housing in the past, but that has resolved. LYNN has an 11 year old from a former relationship, Ender. LYNN and FOJe have one other child together, Lia- she is 2 years old. Patient's parent/guardian status:? ?LYNN states that she and FOJe have been together for 6 or 7 years after knowing each other from school. LYNN denies any domestic violence or intimate partner violence. This is second baby for parents together. Medical History: ?LYNN is 29 year old female who is 3, para 2- now 3 following labor and delivery of . LYNN received routine care during with [place]. LYNN presented to hospital in active labor on 01/03/25 and delivered baby via vaginal delivery at 38 weeks gestation. Baby boy, named Louis Herrera, was born weighing 7lb 3oz and has apgars of 8 and 9 at one and five minutes of life, respectfully. LYNN states that she is breast feeding and baby will be followed by Dr. Amezcua for pediatrics. Educational Status:? LYNN reports to having graduated from high school, no college education. LYNN states that FOJe attended his 12 grade year, but did not graduate. Financial Status: TMAAR is employed at [employer]. LYNN does not work, she stays at home and is the primary caregiver to her kids. Infant Supplies: All necessary baby supplies obtained, including: car seat, safe sleep space, clothes, diapers and wipes. Childcare/Caregiver(s):? MOB will be the primary caregiver to baby. Transportation:??Both parents have their drivers license and reliable means of transportation, no barriers. Programs/Agencies Involved: ?LYNN is receiving insurance through [employer]. MOB states that she is also connected to SNAP benefits. LYNN does not have WIC, but is receptive to getting connected to [employer]. ?? Children Services/Legal Issues:???MOB disclosed that Children Services did come to the home after her daughter was born, due to MOB smoking marijuana during . MOB states that they looked around the home to ensure that MOB had all necessary baby items and then closed their referral. - Mila informed MOB of need for sw to make a referral to Children Services again due to some concern. MOB expressed understanding. - Mila called [facility] and spoke to hotline screener: Antonio. Behavioral Health Issues: ??Mental Health History: MOB states that TAMAR does not have any mental health diagnoses. MOB states that she has been diagnosed with ADHD, anxiety and depression. MOB states that she has struggled in the past with her depression, and her comfort person has been her son. MOB states that she does have some guilt due to the fact that her 11 year old is her person who provides comfort to her. Sw provided sympathy and utilized active listening. MOB states that she has considered getting connected to mental health supports in the past but never has. Mila offered to assist MOB in providing linkage to beneficial mental health services and supports at this time, but MOB declined. ??? Substance Use History:?LYNN reports to using THC in the past and at end of to help with nausea. ? Family History:??MOB denies family history of substance use or significant mental health diagnoses. ??? Drug Screens: MOB urine screen was presumed positive due to her admitting to use on 01/02/25. Baby urine not screened and meconium pending. Family/Social Stressors:? MOB denies any issues, concerns or stressors at this time. Support Systems: MOB states that TAMAR and both sets of grandma's are her biggest supports. Depression/Shaken Baby/Safe Sleeping: Sw talked to MOB about signs and symptoms of baby blues and depression and anxiety. MOB states that after her other two deliveries she felt more mentally healthy/ stable. MOB states that her children always bring her happiness and audrey. MOB states that if she were to struggle during this period she would talk to her family, FOB and her OBGYN. MOB states that if her OBGYN were to recommend pharmacological help during this period she would be receptive to that. Sw educated MOB on shaken baby prevention and ABCs of safe sleep. ASSESSMENT:? MOB and baby admitted following labor and delivery of . MOB with mental health history positive for anxiety and depression. MOB also states that she was diagnosed with ADHD when she was in school and used to take medication to help her manage her symptoms. MOB denies ever experiencing symptoms of baby blues or depression. MOB admits to smoking marijuana at end of to help her with nausea. MOB understanding of need for sw to make referral to [facility] services due to substance use during / exposure to baby in utero. Safe Plan of Care for related to substance use:? MOB reports that she does not have intentions of using now that baby is born. MOB states that she only used to help with some nausea, stating that zofran made her nausea worse. PLAN:?? No other services requested or indicated. MOB and baby to be discharged when medically ready. Parents were provided literature regarding: signs and symptoms of baby blues and mood and anxiety disorders, [employer] Me [employer], shaken baby prevention, ABCs of safe sleep and a list of [facility] resources that are available for them should any needs present themselves. Jan Alexis, DAIRY ASSOCIATE, CARTON INSPECTOR
== END 2025-01-04 21:17 | disposition home or self-care (01) | DRG 560 ==
LOC: WPOUT 17:12 → WP 17:12
PROVIDERS: Admitting Provider Advanced Practice Midwife; PCP Family Medicine Sports Medicine; Referring Provider Advanced Practice Midwife; Visit Provider Advanced Practice Midwife
DX: O36.8130 Decreased fetal movements, third trimester, not applicable or unspecified (principal); Z37.0 Single live birth; O99.344 Other mental disorders complicating childbirth; F41.8 Other specified anxiety disorders; O22.43 Hemorrhoids in pregnancy, third trimester; Z3A.38 38 weeks gestation of pregnancy; O69.81X0 Labor and delivery complicated by cord around neck, without compression, not applicable or unspecified; O70.0 First degree perineal laceration during delivery; O99.814 Abnormal glucose complicating childbirth
CPT/HCPCS: 59025; 59050; 80307; 81001; 82962; 85025; 86780; 86850; 86900; 86901; 87086